=== PATIENT | male | born 1945 | race Caucasian/White ===

== ENCOUNTER → 2023-06-12 10:15 | Outpatient (REF) | payer MEDICARE, BC, SELFPAY | LOC: CLAB 10:15 | PROVIDERS: ATTENDING PHYSICIAN Specialist | DX: R82.71 Bacteriuria (principal) | CPT/HCPCS: 87086 ==

== ENCOUNTER → 2023-10-14 10:14 | Outpatient (REF) | payer MEDICARE, BC, SELFPAY ==
[2023-10-14 12:49] LABS: Urine Albumin Negative (Neg - Trace); Urine Bilirubin Negative (Negative); Urine Character Clear (Clear); Urine Color Yellow; Urine Glucose Negative (Negative); Urine Ketone Negative (Negative); Urine Leukocyte Negative (Negative); Urine Nitrite Negative (Negative); Urine Occult Blood 1+ (Negative); Urine Specific Gravity 1.025 (<1.030); Urine Urobilinogen Negative (Neg - 1+)
[2023-10-14 13:30] LABS: Urine Amorphous Seen; Urine Mucus Few; Urine Squamous Cell 0-2 /LPF (Few)
[2023-10-14 13:31] LABS: Urine Hyaline Cast 0-2 /LPF (0-2); Urine White Cell 0-2 /HPF (0-5)
== END ==
LOC: HWLAB 10:14
PROVIDERS: ATTENDING PHYSICIAN Nurse Practitioner Family
DX: M54.9 Dorsalgia, unspecified (principal)
CPT/HCPCS: 74018; 81003; 81015

== ENCOUNTER → 2024-06-13 06:45 | Outpatient (REF) | payer MEDICARE, BC, SELFPAY ==
[2024-06-13 09:52] LABS: % Basophils 1.5 % (0-2); % Eosinophils 2.3 % (0-6); % Immature Granulocytes 0.2 % (0-0.5); % Lymphocytes 30.7 % (20.5-51.1); % Monocytes 11.5 % (1.7-9.3); % Neutrophils 53.8 % (42.2-75.2); Absolute Basophils 0.1 10^3/uL (0-0.2); Absolute Eosinophils 0.1 10^3/uL (0-0.7); Absolute Lymphocytes 1.5 10^3/uL (1.2-3.4); Absolute Monocytes 0.6 10^3/uL (0.1-0.6); Absolute Neutrophils 2.6 10^3/uL (1.4-6.5); Hematocrit 46.5 % (39.0-52.0); Hemoglobin 15.9 g/dL (13.0-18.0); Mean Corp Hgb Conc. 34.2 g/dL (33.0-37.0); Mean Corpuscular Hgb 30.6 pg (27.0-31.0); Mean Corpuscular Volume 89.6 fL (80.0-94.0); Mean Platelet Volume 10.4 fL (7.4-10.4); Nucleated Red Blood Cells % 0 % (-); Platelet Count 181 10^3/uL (130-400); Red Blood Cell Count 5.19 10^6/uL (4.70-6.10); Red Cell Dist. Width 13.2 % (11.5-14.5); White Blood Cell Count 4.8 10^3/uL (4.8-10.8)
[2024-06-13 10:02] LABS: ALT (SGPT) 25 U/L (0-50); AST (SGOT) 25 U/L (17-59); Albumin 4.7 g/dl (3.5-5.0); Alkaline Phosphatase 85 U/L (38-126); Blood Urea Nitrogen 20 mg/dl (9-20); Calcium 9.3 mg/dl (8.4-10.2); Carbon Dioxide 27 mmol/L (22-30); Chloride 105 mmol/L (98-107); Glucose 110 mg/dl (70-99); HDL Cholesterol 63 mg/dl; LDL Cholesterol, Calculated 96 mg/dl; Potassium 4.4 mmol/L (3.5-5.1); Sodium 141 mmol/L (135-145); Total Bilirubin 0.9 mg/dl (0.2-1.3); Total Cholesterol 177 mg/dl (50-199); Total Protein 7.7 g/dl (6.3-8.2); Triglyceride 91 mg/dl (10-149); Very Low Density Lipoprotein 18 mg/dl (0-30); eGFR > 60.00
[2024-06-13 10:27] LABS: Urine Albumin Negative (Neg - Trace); Urine Bilirubin Negative (Negative); Urine Character Clear (Clear); Urine Color Yellow; Urine Glucose Negative (Negative); Urine Ketone Negative (Negative); Urine Leukocyte Negative (Negative); Urine Nitrite Negative (Negative); Urine Occult Blood 3+ (Negative); Urine Urobilinogen Negative (Neg - 1+)
[2024-06-13 10:45] LABS: Erythrocyte Sed Rate 6 mm/hour (0-20)
[2024-06-13 11:31] LABS: Urine Mucus Moderate
[2024-06-13 11:32] LABS: Urine Amorphous Seen; Urine Squamous Cell 0-2 /LPF (Few)
[2024-06-13 11:34] LABS: Urine White Cell 0-2 /HPF (0-5)
[2024-06-15 12:28] LABS: Lyme Antibody Screen, EIA Negative (Negative)
[2024-06-15 20:35] LABS: Ehrlichia chaffeensis IgG Ab <1:64 (<1:64); Ehrlichia chaffeensis IgM Ab < 1:16 (< 1:16)
== END ==
LOC: HWLAB 06:45
PROVIDERS: ATTENDING PHYSICIAN Internal Medicine Geriatric Medicine
DX: E03.8 Other specified hypothyroidism (principal); K51.20 Ulcerative (chronic) proctitis without complications; E78.2 Mixed hyperlipidemia; R19.4 Change in bowel habit; R10.9 Unspecified abdominal pain; Z12.5 Encounter for screening for malignant neoplasm of prostate
CPT/HCPCS: 36415; 80053; 80061; 81003; 81015; 84439; 85025; 85652; 86611; 86618; 86666; G0103

== ENCOUNTER → 2024-11-14 17:13 | Outpatient (REF) | payer MEDICARE, BC, SELFPAY ==
[2024-11-14 17:51] LABS: Urine Character Cloudy (Clear)
[2024-11-14 18:09] LABS: Urine Squamous Cell 0-2 /LPF (Few)
[2024-11-14 18:10] LABS: Urine Red Blood Cell 16-20 /HPF (0-2)
== END ==
LOC: CLAB 17:13
PROVIDERS: ATTENDING PHYSICIAN Specialist
DX: R31.1 Benign essential microscopic hematuria (principal)
CPT/HCPCS: 81003; 81015

== ENCOUNTER → 2024-12-30 07:02 | Outpatient (REF) | payer MEDICARE, BC, SELFPAY ==
[2024-12-30 10:27] LABS: Urine Character Clear (Clear)
[2024-12-30 10:56] LABS: Urine Red Blood Cell 0-2 /HPF (0-2); Urine White Cell 0-2 /HPF (0-5)
== END ==
LOC: HWLAB 07:02
PROVIDERS: ATTENDING PHYSICIAN Specialist; FAMILY PHYSICIAN Internal Medicine Geriatric Medicine
DX: R31.1 Benign essential microscopic hematuria (principal)
CPT/HCPCS: 81003; 81015